=== PATIENT | female | born 1955 | race African-American/Black ===

== ENCOUNTER 2017-02-16 19:17 | Emergency (ER) | payer MEDICAID, OTHER ==
[~2017-02-16] VITALS: Ht 162.6 cm; Wt 68.0 kg
[2017-02-16 20:31] VITALS: BP_SYST 138; BP_SYST 146; BP_DIAS 85; BP_DIAS 96
[2017-02-16 22:30] VITALS: BP 129/75
[2017-02-16 23:56] VITALS: BP 122/75
[2017-02-16 23:59] VITALS: BP 122/75
--- NOTE | 2017-02-17 00:01 | Emergency Room Report ---
History of Present Illness General Chief Complaint: Multiple Trauma/Fall Source: Patient, EMS Present Illness HPI Patient is a 62-year-old female presented after increased right knee pain and hip pain after fall. Patient reported having injury after fall from standing. Patient's history of drinking alcohol earlier in the day. The patient was having prior history of arthritis. She states she as unable to walk. Allergies: Coded Allergies: No Known Allergies (Unverified , 02/16/17) Patient History Past Medical History: see triage record Now: No Reviewed Nursing Documentation: PMH: Agreed, PSxH: Agreed Nursing Documentation-PMH Hx Hypertension: Yes Hx Seizures: Yes Review of Systems All Other Systems: negative except mentioned in HPI Physical Exam Vital Signs Date Time Temp Pulse Resp B/P Pulse Ox O2 Delivery O2 Flow Rate FiO2 02/16/17 19:16 97.9 88 18 146/96 99 Room Air General Appearance: well appearing, no apparent distress, alert, GCS 15 Head: normocephalic, atraumatic ENT: hearing grossly normal, normal voice Neck: full range of motion, supple Respiratory: no respiratory distress, speaking full sentences Gastrointestinal: normal inspection, normal bowel sounds, non tender, soft Musculoskeletal: normal inspection, back normal, no calf tenderness Neurologic: normal inspection, alert, oriented x3, normal gait Psychiatric: mood/affect normal Skin: no rash Medical Decision Making Diagnostic Impression: Primary Impression: Fall Additional Impression: Arthritis of knee, right ER Course Patient presented for knee pain . Differential diagnosis included but was not limited to fracture, contusion, vascular insufficiency, aortic aneurysm, cellulitis. Patient's benign exam and does not appear to require any laboratory testing at this time. X-ray imaging of the knee had a previous interpreted by me showed degenerative changes without fracture. X-ray of the pelvis 1 view interpreted by me showed degenerative changes without fracture. The patient was observed in the emergency department had gradual improvement in mental status. At the time of discharge patient was awake alert and a ambulatory with a walker.The patient is advised to follow up with primary care doctor in 1-2 days. Patient is advised to return if any worsening condition or if any changes in status that are concerning. Last Vital Signs Date Time Temp Pulse Resp B/P Pulse Ox O2 Delivery O2 Flow Rate FiO2 02/16/17 23:56 97.8 84 18 122/75 98 Room Air Status: improved Disposition: HOME, SELF-CARE Condition: Stable Patient Instructions: Arthritis Humberto Martinez Feb 17, 2017 00:01
--- NOTE | 2017-02-17 10:37 | Diagnostic Imaging Report ---
Indication: Pain 3 views of the right knee were obtained. Findings: There is a genuine valgus deformity. There is severe associated osteoarthritis of the lateral compartment the knee characterized by obliteration of the joint space, osteophyte formation. Marginal spurs seen in the other 2 compartments as well. Bones are osteopenic. There is a joint effusion with distention of the suprapatellar pouch. There is soft tissue fullness posterior to the knee which may represent a popliteal cyst. Impression: No acute injury identified. Degenerative changes of the knee as described above. Genu valgum deformity. Joint effusion Suspected popliteal cyst. Ultrasound could confirm this.
--- NOTE | 2017-02-17 10:39 | Diagnostic Imaging Report ---
Indication: pain Findings: Single AP view of the pelvis was performed. Unusual clustered calcifications noted within the right hemipelvis. Bones are osteopenic. Degenerative changes of the lower visualized part of lumbar spine and both hips are noted. Impression: No acute injury Spondylosis Osteoarthritis of both hips Calcifications of the right hemipelvis nonspecific
== END 2017-02-17 | disposition home or self-care (01) ==
LOC: EDBD 19:17 → EMR 19:53
DX: M17.11 Unilateral primary osteoarthritis, right knee (principal); M16.0 Bilateral primary osteoarthritis of hip; M47.816 Spondylosis without myelopathy or radiculopathy, lumbar region; I10 Essential (primary) hypertension
CPT/HCPCS: 72170; 99283

== ENCOUNTER 2018-04-15 11:03 | Emergency (ER) | payer MEDICARE, OTHER ==
[~2018-04-15] VITALS: Ht 165.1 cm; Wt 90.7 kg
[2018-04-15 11:16] VITALS: BP 105/68
[2018-04-15 12:14] LABS: BASOPHILS % (AUTO) 0.6 % (0.0-2.0); EOSINOPHILS % (AUTO) 0.6 % (0.0-3.0); HEMATOCRIT 32.5 % (37.0-47.0); MEAN CORPUSCULAR VOLUME 93 FL (80-99); MONOCYTES % (AUTO) 7.7 % (1.0-10.0); NEUTROPHILS % (AUTO) 75.2 % (45.0-75.0); PLATELET COUNT 399 K/UL (150-450); RED BLOOD COUNT 3.49 M/UL (4.20-5.40); RED CELL DISTRIBUTION WIDTH 14.5 % (11.6-14.8); WHITE BLOOD COUNT 8.5 K/UL (4.8-10.8)
[2018-04-15 12:25] LABS: INR 1.1 (0.9-1.1)
[2018-04-15 12:27] LABS: ANION GAP 9 mmol/L (5-15); BLOOD UREA NITROGEN 24 mg/dL (7-18); CALCIUM 8.5 MG/DL (8.5-10.1); CARBON DIOXIDE 31 MMOL/L (21-32); CHLORIDE 99 MMOL/L (98-107); POTASSIUM 2.9 MMOL/L (3.5-5.1); SODIUM 138 MMOL/L (136-145)
[2018-04-15] MEDS ORDERED: ceFAZolin 1gm/50ml Premix 50 ML IV ONE (12:30)
[2018-04-15 12:42] LABS: ALANINE AMINOTRANSFERASE 38 U/L (12-78); ALBUMIN 1.4 G/DL (3.4-5.0); ALBUMIN/GLOBULIN RATIO 0.3 (1.0-2.7); ALKALINE PHOSPHATASE 96 U/L (46-116); ASPARTATE AMINO TRANSFERASE 25 U/L (15-37); BILIRUBIN,TOTAL 0.6 MG/DL (0.2-1.0); CKMB 2.2 NG/ML (0.0-3.6); CREATINE KINASE 104 U/L (26-308)
[2018-04-15] MEDS ORDERED: ceFAZolin sod 1 GM in D5W 110 ML IVPB SCH (13:05)
[2018-04-15] MEDS ORDERED: Norco 5mg/325mg tab ORAL ONE (13:15)
[2018-04-15 14:43] VITALS: BP 112/70
--- NOTE | 2018-04-15 14:50 | Emergency Room Report ---
History of Present Illness General Chief Complaint: General Complaint Source: Patient, EMS Present Illness HPI This patient is a homeless female. She presents for pain in her skin and rashes on her body. She has a rash in her groin and on her buttocks. She also has bilateral lower extremity swelling. She states this has been ongoing for some time. She has no other complaints. Allergies: Coded Allergies: IBUPROFEN (Unverified Allergy, Unknown, 04/15/18) Patient History Past Medical History: see triage record, HTN, seizures Social History: Reports: smoking, alcohol use, drug use Reviewed Nursing Documentation: PMH: Agreed; PSxH: Agreed Nursing Documentation-PMH Past Medical History: No History, Except For Hx Hypertension: Yes Hx Seizures: Yes Review of Systems All Other Systems: negative except mentioned in HPI Physical Exam Vital Signs Date Time Temp Pulse Resp B/P (MAP) Pulse Ox O2 Delivery O2 Flow Rate FiO2 04/15/18 11:01 98.7 88 18 105/68 98 Room Air 98.8 Sp02 EP Interpretation: reviewed, normal General Appearance: no apparent distress, alert, GCS 15, non-toxic, other - Poor personal hygiene Head: normocephalic, atraumatic Eyes: bilateral eye normal inspection, bilateral eye PERRL ENT: hearing grossly normal, normal pharynx, no angioedema, normal voice Neck: full range of motion, supple/symm/no masses Respiratory: chest non-tender, lungs clear, normal breath sounds, speaking full sentences Cardiovascular #1: regular rate, rhythm, no edema Gastrointestinal: normal bowel sounds, non tender, soft, non-distended, no guarding, no rebound Rectal: deferred Genitourinary: other - skin erythematous, swollen and tender throughout the lower abdomen, vulva and inner thighs. Musculoskeletal: back normal, gait/station normal, normal range of motion, non- tender Neurologic: alert, oriented x3, responsive, motor strength/tone normal, sensory intact, speech normal Psychiatric: judgement/insight normal, memory normal, mood/affect normal, no suicidal/homicidal ideation Skin: warm/dry, well hydrated, other - erythema and swelling gluteal fold and back. Medical Decision Making Diagnostic Impression: Primary Impression: Cellultis Additional Impression: Hypokalemia ER Course This patient has extensive skin rash in the urogenital and gluteal areas. Likely this began as a progressive fungal skin infection and has developed a cellulitis. The skin is raw, arrived and swollen and consistent with cellulitis. The patient otherwise is nontoxic without evidence of sepsis at this time. She is given broad-spectrum antibiotics and IV fluids and admitted for further evaluation and treatment. She is also found to be hypokalemic and was given oral potassium chloride. I suspect this is related to poor oral intake. Laboratory Tests Test 04/15/18 11:55 04/15/18 14:36 White Blood Count 8.5 K/UL (4.8-10.8) Red Blood Count 3.49 M/UL (4.20-5.40) L Hemoglobin 10.0 G/DL (12.0-16.0) L Hematocrit 32.5 % (37.0-47.0) L Mean Corpuscular Volume 93 FL (80-99) Mean Corpuscular Hemoglobin 28.7 PG (27.0-31.0) Mean Corpuscular Hemoglobin Concent 30.8 G/DL (32.0-36.0) L Red Cell Distribution Width 14.5 % (11.6-14.8) Platelet Count 399 K/UL (150-450) Mean Platelet Volume 6.4 FL (6.5-10.1) L Neutrophils (%) (Auto) 75.2 % (45.0-75.0) H Lymphocytes (%) (Auto) 16.0 % (20.0-45.0) L Monocytes (%) (Auto) 7.7 % (1.0-10.0) Eosinophils (%) (Auto) 0.6 % (0.0-3.0) Basophils (%) (Auto) 0.6 % (0.0-2.0) Prothrombin Time 11.0 SEC (9.30-11.50) Prothrombin Time INR 1.1 (0.9-1.1) PTT 28 SEC (23-33) Sodium Level 138 MMOL/L (136-145) Potassium Level 2.9 MMOL/L (3.5-5.1) L Chloride Level 99 MMOL/L (98-107) Carbon Dioxide Level 31 MMOL/L (21-32) Anion Gap 9 mmol/L (5-15) Blood Urea Nitrogen 24 mg/dL (7-18) H Creatinine 1.0 MG/DL (0.55-1.30) Estimate Glomerular Filtration Rate > 60 mL/min (>60) Glucose Level 101 MG/DL (74-106) Calcium Level 8.5 MG/DL (8.5-10.1) Total Bilirubin 0.6 MG/DL (0.2-1.0) Aspartate Amino Transferase (AST) 25 U/L (15-37) Alanine Aminotransferase (ALT) 38 U/L (12-78) Alkaline Phosphatase 96 U/L (46-116) Total Creatine Kinase 104 U/L (26-308) Creatine Kinase MB 2.2 NG/ML (0.0-3.6) Creatine Kinase MB Relative Index 2.1 Troponin I 0.000 ng/mL (0.000-0.056) Pro-B-Type Natriuretic Peptide 2756 pg/mL (0-125) H Total Protein 5.9 G/DL (6.4-8.2) L Albumin 1.4 G/DL (3.4-5.0) L Globulin 4.5 g/dL Albumin/Globulin Ratio 0.3 (1.0-2.7) L Serum Alcohol Pending EKG Diagnostic Results Rate: tachycardiac Rhythm: other - S.tachycardia ST Segments: other - NSST Rhythm Strip Diag. Results EP Interpretation: yes Rate: 120's Rhythm: no PVC's, no ectopy, other - s.tachycardia Chest X-Ray Diagnostic Results Chest X-Ray Diagnostic Results : Chest X-Ray Ordered: Yes # of Views/Limited/Complete: 1 View Indication: Other Interpretation: no consolidation, no effusion, no pneumothorax, other - old rib fractures. Impression: No acute disease Electronically Signed by: Edwin Last Vital Signs Date Time Temp Pulse Resp B/P (MAP) Pulse Ox O2 Delivery O2 Flow Rate FiO2 04/15/18 13:15 98.8 04/15/18 11:16 18 105/68 98 Room Air 04/15/18 11:01 88 Disposition: XFER SHT-TRM HOSP Condition: Stable Scripts No Active Prescriptions or Reported Meds Referrals: NOT CHOSEN [facility]/,REFERRING (PCP) CARLA TORO D.O. April 15, 2018 14:50
[2018-04-15] MEDS ORDERED: Fluconazole 100mg tab ORAL ONE (15:00)
[2018-04-15] MEDS ORDERED: Fluconazole 100mg tab ONE (15:01)
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
[2018-04-15 16:45] VITALS: BP 112/70
--- NOTE | 2018-04-18 13:59 | Cardiology Report ---
APPROVED REPORT EKG Measurement Heart [id number] Sinus tachycardia with premature atrial complexes Anterior infarct, age undetermined Abnormal ECG
== END 2018-04-15 16:45 | disposition short-term general hospital (02) ==
LOC: EDBD 11:03 → EMR 12:20
DX: L03.312 Cellulitis of back [any part except buttock and flank] (principal); E87.6 Hypokalemia; I10 Essential (primary) hypertension; Z88.6 Allergy status to analgesic agent
CPT/HCPCS: 36415; 71045; 80053; 82550; 82553; 83880; 84484; 85025; 85610; 85730; 93005; 96374; 96375; 99285; G0480; J0690; 80329; J8499

== ENCOUNTER 2018-07-26 00:01 | Emergency (ER) | payer MEDICARE, OTHER ==
[~2018-07-26] VITALS: Ht 167.6 cm; Wt 77.1 kg
[2018-07-26 00:10] VITALS: BP 131/72
[2018-07-26] MEDS ORDERED: Furosemide 40mg tab ORAL ONE (00:30)
--- NOTE | 2018-07-26 00:49 | Emergency Room Report ---
History of Present Illness General Chief Complaint: Pain Source: Patient Present Illness HPI Patient presents with complaints of swelling to both of her feet Reports that she was recently signed out from a facility Denies any headache denies any chest pain or shortness of breath The swelling in the legs was causing some increased pressure and discomfort as well Denies any pleurisy denies any vomiting or diarrhea Patient has some decreased lack of history regarding past medical history Allergies: Coded Allergies: IBUPROFEN (Unverified Allergy, Unknown, 04/15/18) Patient History Past Medical History: see triage record Pertinent Family History: none Reviewed Nursing Documentation: PMH: Agreed; PSxH: Agreed Nursing Documentation-PMH Hx Hypertension: Yes Hx Seizures: Yes Review of Systems All Other Systems: negative except mentioned in HPI Physical Exam Vital Signs Date Time Temp Pulse Resp B/P (MAP) Pulse Ox O2 Delivery O2 Flow Rate FiO2 07/26/18 00:07 97.0 87 16 131/72 94 Room Air 97.0 Sp02 EP Interpretation: reviewed, normal General Appearance: well appearing, no apparent distress Head: normocephalic, atraumatic Eyes: bilateral eye PERRL, bilateral eye EOMI ENT: hearing grossly normal, normal pharynx, TMs + canals normal, uvula midline Neck: full range of motion, supple, no meningismus, no bony tend Respiratory: lungs clear, normal breath sounds, no rhonchi, no respiratory distress, no retraction, no accessory muscle use Cardiovascular #1: normal peripheral pulses, regular rate, rhythm, no gallop, no JVD, no murmur Gastrointestinal: normal bowel sounds, non tender, soft, no mass, no organomegaly, non-distended, no guarding, no hernia, no pulsatile mass, no rebound Genitourinary: no CVA tenderness Musculoskeletal: normal inspection Neurologic: oriented x3, responsive, collar trimmer III-XII nml as tested, motor strength/ tone normal, sensory intact Psychiatric: mood/affect normal Skin: other - Dependent edema bilaterally lower extremities including bilateral calf. Appropriate neurovascular intact, Lymphatic: normal inspection, no adenopathy Medical Decision Making Diagnostic Impression: Primary Impression: Edema ER Course Multiple differentials are considered, including but not limited to cardiac, cardiopulmonary, renal pathology Patient's findings are fairly chronic Bilateral and equal My suspicion for blood clot is low Patient is provided with diuretics and is stable for close follow-up Last Vital Signs Date Time Temp Pulse Resp B/P (MAP) Pulse Ox O2 Delivery O2 Flow Rate FiO2 07/26/18 00:10 97.0 87 16 131/72 94 Room Air 97.0 Status: improved Disposition: HOME, SELF-CARE Condition: Improved Scripts Furosemide* (LASIX*) 40 Mg Tablet 40 MG ORAL DAILY, #12 TAB Prov: Doris Mendez DO 07/26/18 Additional Instructions: Patient is provided with the discharge instructions notified to follow up with primary doctor in the next 2-3 days otherwise return to the er with any worsening symptoms. Please note that this report is being documented using [employer] technology. This can lead to erroneous entry secondary to incorrect interpretation by the dictating instrument. Doris Mendez DO Jul 26, 2018 00:49
[2018-07-26] MEDS ORDERED: FUROSEMIDE40 MG ORAL (01:59)
[2018-07-26 05:35] VITALS: BP 130/70
[2018-07-26 06:58] VITALS: BP 130/70
[2018-07-26 06:59] VITALS: BP 122/74
== END 2018-07-26 07:15 | disposition home or self-care (01) ==
LOC: EDBD 00:01 → EMR 00:27
DX: R60.9 Edema, unspecified (principal); I10 Essential (primary) hypertension; G40.909 Epilepsy, unspecified, not intractable, without status epilepticus
CPT/HCPCS: 99283

== ENCOUNTER 2018-08-07 21:08 | Emergency (ER) | payer MEDICARE, OTHER ==
[~2018-08-07] VITALS: Ht 167.6 cm; Wt 79.8 kg
[~2018-08-07 21:08] MED LIST: FUROSEMIDE40 MG ORAL
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
[2018-08-07 23:00] VITALS: BP 126/67
[2018-08-07] MEDS ORDERED: LORazepam Inj 2mg/ml 1ml IM ONE (23:30)
[2018-08-07] MEDS ORDERED: Acetaminophen 500mg (ES) tab ORAL ONE (23:30)
[2018-08-08] MEDS ORDERED: DiphenhydrAMINE 50mg/ml Inj IVP ONE (01:15)
[2018-08-08 02:00] VITALS: BP 124/65
[2018-08-08 04:00] VITALS: BP 121/63
[2018-08-08 04:40] VITALS: BP 121/63
== END 2018-08-08 04:45 | disposition home or self-care (01) ==
LOC: EDBD 21:08 → EDUNIT# 21:08 → EMR 21:40
DX: F10.129 Alcohol abuse with intoxication, unspecified (principal); I10 Essential (primary) hypertension; Z88.6 Allergy status to analgesic agent
CPT/HCPCS: 36415; 96372; 96374; 96375; 99284; G0480; J1200; S0028; 80329

== ENCOUNTER 2018-10-10 02:12 | Emergency (ER) | payer MEDICARE, OTHER ==
[~2018-10-10] VITALS: Ht 167.6 cm; Wt 90.7 kg
[2018-10-10 03:16] LABS: BASOPHILS % (AUTO) 1.7 % (0.0-2.0); EOSINOPHILS % (AUTO) 2.3 % (0.0-3.0); HEMATOCRIT 39.6 % (37.0-47.0); HEMOGLOBIN 12.6 G/DL (12.0-16.0); LYMPHOCYTES % (AUTO) 22.5 % (20.0-45.0); MEAN CORPUSCULAR VOLUME 84 FL (80-99); MONOCYTES % (AUTO) 11.8 % (1.0-10.0); NEUTROPHILS % (AUTO) 61.7 % (45.0-75.0); PLATELET COUNT 462 K/UL (150-450); RED BLOOD COUNT 4.74 M/UL (4.20-5.40); RED CELL DISTRIBUTION WIDTH 18.5 % (11.6-14.8); WHITE BLOOD COUNT 8.5 K/UL (4.8-10.8)
[2018-10-10 03:24] VITALS: BP 156/70
[2018-10-10 03:35] LABS: ALANINE AMINOTRANSFERASE 21 U/L (12-78); ALBUMIN 2.8 G/DL (3.4-5.0); ALBUMIN/GLOBULIN RATIO 0.5 (1.0-2.7); ALKALINE PHOSPHATASE 144 U/L (46-116); ANION GAP 8 mmol/L (5-15); ASPARTATE AMINO TRANSFERASE 41 U/L (15-37); BILIRUBIN,TOTAL 0.5 MG/DL (0.2-1.0); BLOOD UREA NITROGEN 19 mg/dL (7-18); CALCIUM 9.1 MG/DL (8.5-10.1); CARBON DIOXIDE 28 MMOL/L (21-32); CHLORIDE 104 MMOL/L (98-107); CREATININE 1.1 MG/DL (0.55-1.30); POTASSIUM 4.1 MMOL/L (3.5-5.1); SODIUM 140 MMOL/L (136-145)
[2018-10-10 03:41] LABS: BILIRUBIN, URINE NEGATIVE (NEGATIVE); COLOR,URINE PALE YELLOW; GLUCOSE, URINE (UA) NEGATIVE (NEGATIVE); KETONES,URINE NEGATIVE (NEGATIVE); LEUKOCYTE ESTERASE ,URINE 1+ (NEGATIVE); NITRITE,URINE NEGATIVE (NEGATIVE); PH,URINE 5 (4.5-8.0); PROTEIN,URINE 1+ (NEGATIVE); UROBILINOGEN,URINE 1 MG/DL (0.0-1.0)
[2018-10-10 03:42] VITALS: BP 124/93
[2018-10-10 03:45] LABS: APPEARANCE,URINE CLEAR
--- NOTE | 2018-10-10 04:24 | Emergency Room Report ---
History of Present Illness General Chief Complaint: Abdominal Pain Present Illness HPI Patient is a 63-year-old female who presented after increased abdominal pain. Patient gradual onset of symptoms. Patient reports having increased had dysuria. She reports having some crampy abdominal pain. She reports having recently used cocaine. Patient has prior history of alcohol abuse.Patient denies any fever. Allergies: Coded Allergies: IBUPROFEN (Unverified Allergy, Unknown, 04/15/18) Patient History Past Medical History: see triage record Last Menstrual Period: 2 decades ako Now: No Reviewed Nursing Documentation: PMH: Agreed; PSxH: Agreed Nursing Documentation-PMH Hx Hypertension: Yes Hx Seizures: Yes Review of Systems All Other Systems: negative except mentioned in HPI Physical Exam Vital Signs Date Time Temp Pulse Resp B/P (MAP) Pulse Ox O2 Delivery O2 Flow Rate FiO2 10/10/18 02:29 98.1 99 18 156/70 94 Room Air General Appearance: well appearing, no apparent distress, Chronically Ill Head: normocephalic, atraumatic ENT: hearing grossly normal, normal voice Neck: full range of motion, supple Respiratory: no respiratory distress, speaking full sentences Cardiovascular #1: normal inspection, regular rate, rhythm, no edema Gastrointestinal: normal inspection, soft Neurologic: normal inspection, alert, oriented x3, normal gait Psychiatric: mood/affect normal Skin: no rash Medical Decision Making Diagnostic Impression: Primary Impression: Substance abuse Additional Impression: Urinary tract infection ER Course Patient presented for abdominal pain. Differential diagnoses included ischemic bowel, appendicitis, perforated viscus, abdominal aortic aneurysm, inferior myocardial infarction, viral gastroenteritis Because of complexity of patient's case laboratory testing and imaging studies were ordered. The patient's laboratory studies were notable for urine dressing positive for cocaine. Patient appears to have some evidence of urinary tract infection was given oral antibiotics. Labs Test 10/10/18 03:01 10/10/18 03:30 White Blood Count 8.5 K/UL (4.8-10.8) Red Blood Count 4.74 M/UL (4.20-5.40) Hemoglobin 12.6 G/DL (12.0-16.0) Hematocrit 39.6 % (37.0-47.0) Mean Corpuscular Volume 84 FL (80-99) Mean Corpuscular Hemoglobin 26.6 PG (27.0-31.0) Mean Corpuscular Hemoglobin Concent 31.8 G/DL (32.0-36.0) Red Cell Distribution Width 18.5 % (11.6-14.8) Platelet Count 462 K/UL (150-450) Mean Platelet Volume 6.0 FL (6.5-10.1) Neutrophils (%) (Auto) 61.7 % (45.0-75.0) Lymphocytes (%) (Auto) 22.5 % (20.0-45.0) Monocytes (%) (Auto) 11.8 % (1.0-10.0) Eosinophils (%) (Auto) 2.3 % (0.0-3.0) Basophils (%) (Auto) 1.7 % (0.0-2.0) Sodium Level 140 MMOL/L (136-145) Potassium Level 4.1 MMOL/L (3.5-5.1) Chloride Level 104 MMOL/L (98-107) Carbon Dioxide Level 28 MMOL/L (21-32) Anion Gap 8 mmol/L (5-15) Blood Urea Nitrogen 19 mg/dL (7-18) Creatinine 1.1 MG/DL (0.55-1.30) Estimat Glomerular Filtration Rate > 60 mL/min (>60) Glucose Level 96 MG/DL (74-106) Calcium Level 9.1 MG/DL (8.5-10.1) Total Bilirubin 0.5 MG/DL (0.2-1.0) Aspartate Amino Transf (AST/SGOT) 41 U/L (15-37) Alanine Aminotransferase (ALT/SGPT) 21 U/L (12-78) Alkaline Phosphatase 144 U/L (46-116) Pro-B-Type Natriuretic Peptide 299 pg/mL (0-125) Total Protein 8.0 G/DL (6.4-8.2) Albumin 2.8 G/DL (3.4-5.0) Globulin 5.2 g/dL Albumin/Globulin Ratio 0.5 (1.0-2.7) Serum Alcohol < 3 mg/dL Urine Color Pale yellow Urine Appearance Clear Urine pH 5 (4.5-8.0) Urine Specific [place] 1.020 (1.005-1.035) Urine Protein 1+ (NEGATIVE) Urine Glucose (UA) Negative (NEGATIVE) Urine Ketones Negative (NEGATIVE) Urine Blood Negative (NEGATIVE) Urine Nitrite Negative (NEGATIVE) Urine Bilirubin Negative (NEGATIVE) Urine Urobilinogen 1 MG/DL (0.0-1.0) Urine Leukocyte Esterase 1+ (NEGATIVE) Urine RBC 0-2 /HPF (0 - 2) Urine WBC 5-10 /HPF (0 - 2) Urine Squamous Epithelial Cells Many /LPF (NONE/OCC) Urine Bacteria Moderate /HPF (NONE) Urine Opiates Screen Negative (NEGATIVE) Urine Barbiturates Screen Negative (NEGATIVE) Phencyclidine (PCP) Screen Negative (NEGATIVE) Urine Amphetamines Screen Negative (NEGATIVE) Urine Benzodiazepines Screen Negative (NEGATIVE) Urine Cocaine Screen Positive (NEGATIVE) Urine Marijuana (THC) Screen Positive (NEGATIVE) Last Vital Signs Date Time Temp Pulse Resp B/P (MAP) Pulse Ox O2 Delivery O2 Flow Rate FiO2 10/10/18 03:42 98.1 94 22 124/93 94 Room Air Status: improved Disposition: HOME, SELF-CARE Condition: Stable Referrals: NOT CHOSEN [facility]/,REFERRING (PCP) Humberto Martinez MD Oct 10, 2018 04:24
[2018-10-10] MEDS ORDERED: Cephalexin 500mg cap ORAL ONE (04:30)
[2018-10-10] MEDS ORDERED: PRILOSEC OTC20 MG ORAL (05:19)
[2018-10-10 05:21] VITALS: BP 127/89
[2018-10-10] MEDS ORDERED: CEPHALEXIN500 MG ORAL (05:21)
[2018-10-10 05:39] VITALS: BP 127/89
--- NOTE | 2018-10-10 18:22 | Cardiology Report ---
APPROVED REPORT EKG Measurement Heart [id number] Normal sinus rhythm Septal infarct, age undetermined Abnormal ECG
== END 2018-10-10 05:30 | disposition home or self-care (01) ==
LOC: EMR 02:35
DX: N39.0 Urinary tract infection, site not specified (principal); F14.10 Cocaine abuse, uncomplicated; I10 Essential (primary) hypertension; Z88.6 Allergy status to analgesic agent
CPT/HCPCS: 36415; 80053; 80307; 81001; 83880; 85025; 87086; 87181; 93005; 99283; G0480; 80329